=== PATIENT | female | born 2000 ===

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

== ENCOUNTER 2022-08-10 08:45 | Inpatient (IN) | payer SELFPAY ==
[2022-08-10] VITALS (31 sets, daily range): BP systolic 84–143; BP diastolic 49–89
[~2022-08-10] VITALS: Ht 148 cm; Wt 74.5 kg
[~2022-08-10 08:45] MED LIST: FERR325T18 PO; IBUP-844 PO
[2022-08-10] MEDS ORDERED: D5 LR IV SOLUTION 1,000 ML IV SCH (09:45)
[2022-08-10] MEDS ORDERED: MINERAL OIL 30 ML UDC TOP PRN (09:45)
[2022-08-10 10:13] LABS: BASOPHILS % (AUTO) 0 % (0-10); EOSINOPHILS # (AUTO) 0.1 10^3/uL (0.0-0.3); EOSINOPHILS % (AUTO) 1 % (0-10); HEMATOCRIT 41 % (35-52); HEMOGLOBIN 13.4 g/dL (11.5-16.0); LYMPHOCYTES # (AUTO) 1.6 10^3/uL (1.0-4.0); LYMPHOCYTES % (AUTO) 18 % (12-44); MEAN CORPUSCULAR HEMOGLOBIN 28 pg (25-34); MEAN CORPUSCULAR HGB CONC 33 g/dL (32-36); MEAN CORPUSCULAR VOLUME 85 fL (80-99); MEAN PLATELET VOLUME 9.7 fL (9.0-12.2); MONOCYTES # (AUTO) 0.5 10^3/uL (0.0-1.0); MONOCYTES % (AUTO) 5 % (0-12); NEUTROPHILS # (AUTO) 6.6 10^3/uL (1.8-7.8); NEUTROPHILS % (AUTO) 74 % (42-75); PLATELET COUNT 255 10^3/uL (130-400); WHITE BLOOD COUNT 8.9 10^3/uL (4.3-11.0)
[2022-08-10] MEDS ORDERED: OXYTOCIN PRE-MIX DRIP 500 ML IV ONE ×3 (10:16→12:58)
--- NOTE | 2022-08-10 10:47 | History & Physical-OB ---
OB - Chief Complaint & HPI Date/Time Date of Admission: Date of Admission: Aug 10, 2022 at 09:25 Date seen by a Provider: Aug 10, 2022 Time Seen by a Provider: 10:15 Chief Complaint/History OB-Reason for Admission/Chief: Onset of Labor Hx : 2 Hx Para: 1 Expected Date of Delivery: Aug 17, 2022 Gestational Age in Weeks: 39 Gestational Age in Days: 0 Admission Nurse Assessment Rev: Yes History of Labs GBS negative Allergies and Home Medications Allergies Coded Allergies: No Known Drug Allergies (Unverified , 09/04/19) Patient Home Medication List Home Medication List Reviewed: Yes Ferrous Sulfate (Ferrous Sulfate) 325 Mg Tablet, 325 MG PO DAILY@0800 Prescribed by: CYNTHIA BALL on 09/06/19943 Ibuprofen (Ibu) 600 Mg Tablet, 600 MG PO Q6HR Prescribed by: CYNTHIA BALL on 09/06/19943 OB - History Hx of Present Care: Yes Ultrasounds: Normal mid trimester US Obstetrical Complications: None Medical Complications: None Patient Past Medical History PMHx: Denies PSurgHx: Denies Immunizations Influenza Vaccine Up-to-Date: Yes; Up-to-Date Hepatitis A: No Hepatitis B: No OB - Admission Exam Physical Exam HEENT: Moist Membranes Heart: Rhythm Normal Lungs: Clear Abdomen: Gravid Cervical Dilatation: 6cm Effacement: 75% (to 90 % effaced) Station: -3 Membranes: Intact Heart Rate: 140's Accelerations: Accelerations Present Short Term Variability: Present Fci Variability: Average (6-25) Intensity: Moderate Labs Laboratory Tests Test 08/10/22 10:00 Range/Units White Blood Count 8.9 4.3-11.0 10^3/uL Red Blood Count 4.82 3.80-5.11 10^6/uL Hemoglobin 13.4 11.5-16.0 g/dL Hematocrit 41 35-52 % Mean Corpuscular Volume 85 80-99 fL Mean Corpuscular Hemoglobin 28 25-34 pg Mean Corpuscular Hemoglobin Concent 33 32-36 g/dL Red Cell Distribution Width 13.3 10.0-14.5 % Platelet Count 255 130-400 10^3/uL Mean Platelet Volume 9.7 9.0-12.2 fL Immature Granulocyte % (Auto) 1 % Neutrophils (%) (Auto) 74 42-75 % Lymphocytes (%) (Auto) 18 12-44 % Monocytes (%) (Auto) 5 0-12 % Eosinophils (%) (Auto) 1 0-10 % Basophils (%) (Auto) 0 0-10 % Neutrophils # (Auto) 6.6 1.8-7.8 10^3/uL Lymphocytes # (Auto) 1.6 1.0-4.0 10^3/uL Monocytes # (Auto) 0.5 0.0-1.0 10^3/uL Eosinophils # (Auto) 0.1 0.0-0.3 10^3/uL Basophils # (Auto) 0.0 0.0-0.1 10^3/uL Immature Granulocyte # (Auto) 0.1 0.0-0.1 10^3/uL OB - Assessment/Plan/Diagnosis Assessment Assessment: active labor (at 39 weeks.) Admission Dx 1. IUP at term 39 weeks. Admission Status: Inpatient Order (span 2 midnights) Reason for Inpatient Admission: L&D Plan Plan: Expectant Management Induction Method: AROM Other Plan -she doesn't desire epidural GABRIEL RICKS MD Aug 10, 2022 10:47
[2022-08-10] MEDS ORDERED: PREN-37 PO (11:15)
[2022-08-10] MEDS ORDERED: MEPIVACAINE (CARBOCAINE) 2% 50 ML VIAL ONE (12:19)
[2022-08-10] MEDS ORDERED: MEPIVACAINE (CARBOCAINE) 2% 50 ML VIAL INJ ONE (12:30)
[2022-08-10] MEDS ORDERED: OXYTOCIN PRE-MIX DRIP 500 ML IV SCH (13:30)
[2022-08-10] MEDS ORDERED: WITCH HAZEL(TUCKS) 40 EA JAR TOP PRN (13:30)
[2022-08-10] MEDS ORDERED: BENZOCAINE/MENTHOL (DERMOPLAST) 56 ML CAN TP PRN (13:30)
[2022-08-10] MEDS ORDERED: MEASLES,MUMPS,RUBELLA 1 EA INJ SQ ONE (13:30)
[2022-08-10] MEDS ORDERED: TETANUS,DIPTH,PERTUSS P/F (BOOSTRIX) 0.5 ML VIAL IM ONE (13:30)
[2022-08-10] MEDS ORDERED: NALOXONE 0.4 MG/ML 1 ML (NARCAN) VIAL IV PRN (13:30)
--- NOTE | 2022-08-10 13:34 | OB Labor & Delivery Record ---
L&D History Date of Service Date of Service: Aug 10, 2022 History Expected Date of Delivery: Aug 17, 2022 Gestational Age in Weeks: 39 Hx : 2 Hx Para: 2 Complications Events: Routine care Operative Indications (Cesarea: N/A-Vaginal Delivery Intrapartal Events: Bleeding L&D Stage1 Stage One Onset of Labor - Date: Aug 10, 2022 Onset of Labor - Time: 10:05 Monitors and Tracing Monitor Mode: Internal Heart Rate: 130 Monitor Accelerations: Uniform Station: -3 Rough Rounder Variability: Average (6-10) Short Term Variability: Present Presentation: Vertex Vital Signs VS - Last 72 Hours, by Label 08/10/22 08/10/22 08/10/22 08/10/22 10:00 10:05 10:30 11:00 Temp 36.9 Pulse 96 86 98 77 Resp 18 18 18 18 B/P (MAP) 130/76 (94) 118/77 (91) Pulse Ox 99 99 O2 Delivery Room Air Room Air Room Air Room Air 08/10/22 08/10/22 11:30 11:35 Temp 37.4 Pulse 78 75 Resp 18 18 B/P (MAP) 106/59 (75) 128/78 (95) O2 Delivery Room Air Room Air Signs of Distress by FHT Signs of Distress No Rupture of Membranes Spontaneous Ruture of Membrane: No Amniotic Membrane Rupture Time: 1005 Amniotic Membrane Fluid Desc.: Clear L&D Stage2 Stage Two Stage II Date: Aug 10, 2022 Stage II Time: 12:10 Monitors and Tracing Monitor Mode: Internal Heart Rate: 130 Monitor Accelerations: Uniform Monitor Decelerations: Variable Senior Care Variability: Average (6-10) Short Term Variability: Present Position: Left Occiput Anterior Presentation: Vertex Signs of Distress by FHT Signs of Distress No Cord Descript/Complications Cord Vessel Description: 3 Vessels Complications Patient was noted to have after placenta delivered retained placental membranes. These were removed with sponge forceps and appeared to be removed intact with bleeding from the uterus resolved. She was also noted to have a laceration along the left side of the vaginal wall but it was extending up to the urethral area. This was repaired with 3-0 Vicryl. She also had a perineal tear at the introital region at the 6 o'clock position that was bleeding during the course of the repair. After the repair was completed it appeared that she had a hematoma within the perineal tissue. Dr. Schmidt consulted and at the time patient does not appear to be bleeding. Her total blood loss is 400 cc. We will closely monitor her for any further bleeding in the perineum. If necessary CT scan and possibly exploration under anesthesia if the bleeding does not remain stopped. She will have ice packs as needed to the area with light compression. Condition of Delivery 1 minute Comment: 8 5 minute Comment: 9 Condition of Condition of Infant: Living Exam: No Observed Abnormalities Resuscitation Resuscitation: N/A - Spontaneous Resp L&D Stage3 Stage Three Stage III Date: Aug 10, 2022 Stage III Time: 12:15 Pictocin Pitocin ml/hr: 999 Placenta Delivery Placenta Delivery: Spontaneous Delivery Summary Summary Estimated blood loss (mL): 400 Condition of Delivery Examined: Cervix Examined Post Hemorrhage: Yes GABRIEL RICKS MD Aug 10, 2022 13:34
[2022-08-10] MEDS: IBUPROFEN 600 MG (MOTRIN) TAB PO SCH ×2 (13:53→19:46)
[2022-08-10] MEDS: ACETAMINOPHEN 500 MG TAB (TYLENOL) PO SCH ×2 (13:53→19:46)
[2022-08-10] MEDS ORDERED: PIPERACILLIN SODIUM/TAZOBACTAM 4.5 GM in NS (IVPB) 100 ML IV NR (14:00)
[2022-08-10] MEDS ORDERED: CATHETER FLUSH 10 ML SYR IV SCH ×2 (14:00)
[2022-08-10] MEDS: PIPERACILLIN SODIUM/TAZOBACTAM 4.5 GM in NS (IVPB) 100 ML IV SCH (19:52)
[2022-08-10] MEDS ORDERED: DOCUSATE SODIUM 100 MG (COLACE) CAP PO SCH (21:00)
[2022-08-11 00:11] VITALS: BP 105/66
[2022-08-11] MEDS: ACETAMINOPHEN 500 MG TAB (TYLENOL) PO SCH ×3 (02:15→15:34)
[2022-08-11] MEDS: IBUPROFEN 600 MG (MOTRIN) TAB PO SCH ×3 (02:16→15:34)
[2022-08-11] MEDS: PIPERACILLIN SODIUM/TAZOBACTAM 4.5 GM in NS (IVPB) 100 ML IV SCH (04:32)
[2022-08-11 04:35] VITALS: BP 106/57
[2022-08-11 05:14] LABS: BASOPHILS # (AUTO) 0.1 10^3/uL (0.0-0.1); BASOPHILS % (AUTO) 0 % (0-10); EOSINOPHILS # (AUTO) 0.1 10^3/uL (0.0-0.3); EOSINOPHILS % (AUTO) 1 % (0-10); HEMATOCRIT 27 % (35-52); HEMOGLOBIN 8.6 g/dL (11.5-16.0); LYMPHOCYTES # (AUTO) 2.3 10^3/uL (1.0-4.0); LYMPHOCYTES % (AUTO) 17 % (12-44); MEAN CORPUSCULAR HEMOGLOBIN 28 pg (25-34); MEAN CORPUSCULAR HGB CONC 32 g/dL (32-36); MEAN CORPUSCULAR VOLUME 86 fL (80-99); MEAN PLATELET VOLUME 10.1 fL (9.0-12.2); MONOCYTES # (AUTO) 0.7 10^3/uL (0.0-1.0); MONOCYTES % (AUTO) 5 % (0-12); NEUTROPHILS # (AUTO) 10.8 10^3/uL (1.8-7.8); NEUTROPHILS % (AUTO) 76 % (42-75); PLATELET COUNT 226 10^3/uL (130-400); WHITE BLOOD COUNT 14.2 10^3/uL (4.3-11.0)
[2022-08-11 06:14] LABS: EOSINOPHILS % (MANUAL) 3 %; HYPOCHROMASIA SLIGHT; LYMPHOCYTES % (MANUAL) 23 %; MONOCYTES % (MANUAL) 4 %; NEUTROPHILS % (MANUAL) 70 %
[2022-08-11 08:58] VITALS: BP 108/70
--- NOTE | 2022-08-11 11:20 | Discharge Summary ---
Diagnosis/Chief Complaint Date of Admission Aug 10, 2022 at 09:25 Date of Discharge August 11, 2022 Admission Diagnosis Admission Diagnosis 1. Intrauterine at 39 weeks gestation Discharge Diagnosis 1. Intrauterine at 39 weeks gestation 2. Anemia secondary to acute blood loss following delivery Chief Complaint/HPI Chief Complaint/HPI 21-year-old 2 now T 2 L2 who initially presented to labor and delivery with uterine contractions and dilation to 7 cm in the morning of August 10, 2022. She was noted to be at 39 weeks gestation. Her GBS status at 36 weeks was negative. She denied ruptured membranes upon presentation. Discharge Summary-OBS Procedures 1. Spontaneous vaginal delivery 2. Repair of vaginal wall tear on the right side as well as near the urethra on left Consultations 1. Dr. Schmidt Discharge Physical Examination Allergies: Coded Allergies: No Known Drug Allergies (Unverified , 09/04/19) Vitals & I&Os Intake and Output 08/11/22 00:00 Intake Total 200 ml Balance 200 ml Vital Sign - Last 12Hours Date Time Temp Pulse Resp B/P (MAP) Pulse Ox O2 Delivery O2 Flow Rate FiO2 08/11/22 08:58 36.4 85 16 108/70 (83) 99 Room Air General Appearance: Alert, Oriented X3, No Acute Distress Respiratory: Clear to Auscultation Cardiovascular: Regular Rate Abdominal: Soft Hospital Course Was the Problem List Reviewed?: Yes patient presented to women's services in the morning of August 10, 2022 in active labor. She was noted to be at 7 cm dilated upon presentation. She underwent amniotomy with placement of scalp electrode shortly after admission. Fluid was noted to be clear. She did not require Pitocin augmentation. She continued to contract eventually going on to completion and delivering a term viable male with Apgars of 8 at 1 minute and 9 at 5 minutes. See labor and delivery note for full details. She was noted after delivery to have hemorrhage. It was determined the hemorrhage was due to ret ained dental membranes which were removed shortly after delivery. She continued to bleed from vaginal wall tear and also perineum. She appeared to develop a hematoma which was noted and Dr. Schmidt consult it. Since the hematoma appeared to be not enlarging and she was in no significant discomfort careful watch and wait was opted for. She was placed on Zosyn 4.5 grams IV every 8 hours for the first 24 hours to decrease the risk of infection. Following delivery she underwent otherwise routine care orders. She did have cool compresses placed on the perineum when necessary during the course of the afternoon and evening of August 10. In the morning of August 11 her perineum was evaluated and she had soft tissue swelling but no significant increase in fact it appeared to be slightly decrease the perineal tissue between the vagina and skin. Her hemoglobin had dropped to 8 point 6 in the morning of August 11 compared to admission of 13.4. She was noted to be asymptomatic upon standing up and she reported feeling very much normal. She did not have a drop in blood pressure and she was eager for dismissal. She was informed that I would like to see her in 3 days at clinic at [facility]. She will be placed on Augmentin 875 mg twice daily for 7 days. Also she is placed on iron 325 twice daily with meals. All questions answered. Labs Laboratory Tests 08/11/22 04:29: White Blood Count 14.2H, Red Blood Count 3.09L, Hemoglobin 8.6#L, Hematocrit 27L , Mean Corpuscular Volume 86, Mean Corpuscular Hemoglobin 28, Mean Corpuscular Hemoglobin Concent 32, Red Cell Distribution Width 13.6, Platelet Count 226, Mean Platelet Volume 10.1, Immature Granulocyte % (Auto) 1, Neutrophils (%) (Auto) 76H, Lymphocytes (%) (Auto) 17, Monocytes (%) (Auto) 5, Eosinophils (%) (Auto) 1, Basophils (%) (Auto) 0, Neutrophils # (Auto) 10.8H, Lymphocytes # (Auto) 2.3, Monocytes # (Auto) 0.7, Eosinophils # (Auto) 0.1, Basophils # (Auto) 0.1, Immature Granulocyte # (Auto) 0.1, Neutrophils % (Manual) 70, Lymphocytes % (Manual) 23, Monocytes % (Manual) 4, Eosinophils % (Manual) 3, Hypochromasia SLIGHT Discharge Instructions to patient/family Please see electronic discharge instructions given to patient. Discharge Medications Reviewed and agree with Discharge Medication list on patient's Discharge Instruction sheet GABRIEL RICKS MD Aug 11, 2022 11:20
[2022-08-11] MEDS ORDERED: AMOX1TAB12 PO (11:23)
[2022-08-11] MEDS ORDERED: DOCU100C37 PO (11:23)
[2022-08-11] MEDS ORDERED: IBUP-844 PO (11:23)
[2022-08-11] MEDS ORDERED: FERR-84 PO (11:23)
--- NOTE | 2022-08-11 11:25 | Discharge Inst-Women's Service ---
Discharge Inst-Women's Serv Depart Medication/Instructions New, Converted or Re-Newed RX: Transmitted to Pharmacy ([facility]) Instructions take prescription antibiotics for 7 days as prescribed. Also begin iron twice daily as prescribed. You have also available ibuprofen to take every 6 hours for cramping. Consults/Follow Up Additional Follow Up: Yes (Dr. Ricks this coming Saturday at [facility] to ensure the perineum is healing correctly) Activity Activity: Activity as Tolerated Driving Instructions: No Driving for 1 Week Nothing Inside Vagina: No [place] (For 6 weeks) Diet Discharge Diet: Regular Diet Return to The Hospital For: As below Symptoms to Report to : Swelling Increased, Bleeding Excessive, Fever Over 101 Degrees F, Vaginal Discharge Foul For Any Problems or Questions: Contact Your Physician GABRIEL RICKS MD Aug 11, 2022 11:25
[2022-08-11 15:33] VITALS: BP 115/68
== END 2022-08-11 16:15 | disposition home or self-care (01) | DRG 768 ==
LOC: WSo 08:45 → LDRP 08:45 → WSo 09:24 → LDRP 09:25
PROVIDERS: ADMIT Family Medicine; ATTEND Family Medicine
PROC: 10E0XZZ Delivery of Products of Conception, External Approach (ICD-10-PCS; principal; 2022-08-10)
PROC: 0TQDXZZ Repair Urethra, External Approach (ICD-10-PCS; 2022-08-10)
PROC: 0KQM0ZZ Repair Perineum Muscle, Open Approach (ICD-10-PCS; 2022-08-10)
PROC: 10907ZC Drainage of Amniotic Fluid, Therapeutic from Products of Conception, Via Natural or Artificial Opening (ICD-10-PCS; 2022-08-10)
DX: O90.81 Anemia of the puerperium (principal); Z37.0 Single live birth; D62 Acute posthemorrhagic anemia; O72.1 Other immediate postpartum hemorrhage; O71.5 Other obstetric injury to pelvic organs; Z3A.39 39 weeks gestation of pregnancy
CPT/HCPCS: 36415; 85007; 85025; 85027; 86780; 86850; 86900; 86901; 99212